=== PATIENT | male | born 1955 | race Caucasian/White ===

== ENCOUNTER 2021-07-08 09:40 | Emergency (ER) | payer MEDICARE, OTHER ==
[~2021-07-08] VITALS: Ht 175.3 cm; Wt 117.9 kg
--- NOTE | 2021-07-08 09:45 | NUR ---
Dr Avila at the bedside for MSE.
[2021-07-08] MEDS ORDERED: FUROSEMIDE 40 MG/4 ML VIAL IV ONE (10:00)
[2021-07-08] MEDS ORDERED: METOPROLOL TARTRATE 5 MG/5 ML VIAL IVP ONE ×2 (10:00→10:03)
[2021-07-08] MEDS ORDERED: FUROSEMIDE 40 MG/4 ML VIAL ONE (10:04)
[2021-07-08] MEDS ORDERED: ASPI-869 PO (10:09)
[2021-07-08] MEDS ORDERED: GLUC-195 PO (10:09)
[2021-07-08] MEDS ORDERED: METO-358 PO (10:09)
[2021-07-08] MEDS ORDERED: OMEP20TA20 PO (10:09)
[2021-07-08] MEDS ORDERED: TORS20TA3 PO (10:09)
[2021-07-08] MEDS ORDERED: FLUT16SP BNOSTRILS (10:09)
[2021-07-08] MEDS ORDERED: DICL75TA5 PO (10:09)
[2021-07-08] MEDS ORDERED: ATOR10TA PO (10:09)
[2021-07-08] MEDS ORDERED: MULT-1196 PO (10:09)
[2021-07-08] MEDS ORDERED: ZYFLAMEND PO (10:09)
[2021-07-08] MEDS ORDERED: LOSA100T31 PO (10:09)
[2021-07-08] MEDS ORDERED: TERA10CA4 PO (10:09)
[2021-07-08 10:19] LABS: HEMATOCRIT 37.5 % (36.7-47.1); MEAN CORPUSCULAR HEMOGLOBIN 27.6 uug (23.8-33.4); MEAN CORPUSCULAR VOLUME 84.7 fL (73.0-96.2); PLATELET COUNT (AUTO) 175 K/uL (152-348)
[2021-07-08 10:22] LABS: CREATININE 0.8 mg/dL (0.6-1.3); POTASSIUM 3.8 mmol/L (3.5-5.1)
[2021-07-08 10:42] LABS: BILIRUBIN,TOTAL 0.5 mg/dL (0.2-1.0); TOTAL PROTEIN, SERUM 7.4 g/dL (6.4-8.2)
[2021-07-08 10:51] VITALS: BP 133/80
--- NOTE | 2021-07-08 10:51 | NUR ---
IV removed. Catheter intact and site benign. Pressure and 4x4 gauze applied to site. No bleeding noted.
--- NOTE | 2021-07-08 10:53 | NUR ---
Patient discharged to home in stable condition. Written and verbal after care instructions given. Patient verbalizes understanding of instructions. Stressed follow up or return to ER for worsening s/s.
[2021-07-08 11:06] LABS: THYROID STIMULATING HORMONE 1.152 mIU/mL (0.358-3.740)
== END 2021-07-08 10:54 | disposition home or self-care (01) ==
LOC: ER 09:40
DX: I48.92 Unspecified atrial flutter (principal); I10 Essential (primary) hypertension; E66.9 Obesity, unspecified; Z68.38 Body mass index [BMI] 38.0-38.9, adult; E78.5 Hyperlipidemia, unspecified; Z79.82 Long term (current) use of aspirin; Z79.899 Other long term (current) drug therapy; R60.0 Localized edema
CPT/HCPCS: 36415; 71045; 80053; 83880; 84443; 84484; 85025; 93005; 96374; 96375; 99285; J1940; J3490; 70030-TC; A4663